=== PATIENT | male | born 1960 | race African-American/Black ===

== ENCOUNTER 2021-12-23 10:54 | Inpatient (IN) | payer MEDICARE, OTHER ==
[2021-12-23 12:45] VITALS: BMI 24.1
[2021-12-23] MEDS ORDERED: LOPERAMIDE HCL 2 MG CAPSULE PO PRN (16:44)
[2021-12-23] MEDS ORDERED: MAGNESIUM CITRATE 300 ML BOTTLE PO PRN (16:44)
[2021-12-23] MEDS ORDERED: MAG HYDROX/AL HYDROX/SIMETH 30 ML UNIT-DOSE CUP PO PRN (16:44)
[2021-12-23] MEDS ORDERED: ONDANSETRON *ODT* 4 MG TABLET SL PRN (16:44)
[2021-12-23] MEDS ORDERED: BISMUTH SUBSALICYLATE 524 MG/30 ML PO PRN (16:44)
[2021-12-23] MEDS ORDERED: chlordiazePOXIDE HCL 25 MG CAPSULE PO PRN (16:44)
[2021-12-23] MEDS ORDERED: DICYCLOMINE HCL 10 MG CAPSULE PO PRN (16:44)
[2021-12-23] MEDS ORDERED: ACETAMINOPHEN 325 MG TABLET (FP) PO PRN ×2 (16:44)
[2021-12-23] MEDS ORDERED: MAGNESIUM HYDROX 2400MG/30ML ORAL SUSPENSION 30 ML CUP PO PRN (16:44)
[2021-12-23] MEDS ORDERED: BENZOCAINE/MENTHOL (CHLORASEPTIC ) LOZENGE MM PRN (16:44)
[2021-12-23] MEDS ORDERED: IBUPROFEN 400 MG TABLET (FP) PO PRN (16:44)
[2021-12-23] MEDS ORDERED: cloNIDine HCL 0.1 MG TABLET PO ONE (16:51)
[2021-12-23] MEDS: hydrOXYzine PAMOATE 25 MG CAPSULE (FP) PO SCH ×2 (18:50→22:16)
[2021-12-23] MEDS: THIAMINE HCL 100 MG TABLET (FP) PO SCH (22:16)
[2021-12-23] MEDS: chlordiazePOXIDE HCL 25 MG CAPSULE PO SCH (22:16)
[2021-12-23] MEDS: MELATONIN 5 MG TABLETS PO SCH (22:19)
[2021-12-24] MEDS: chlordiazePOXIDE HCL 25 MG CAPSULE PO SCH ×4 (05:10→22:16)
[2021-12-24] MEDS: hydrOXYzine PAMOATE 25 MG CAPSULE (FP) PO SCH ×5 (05:11→22:19)
[2021-12-24] MEDS: PRENATAL VITAMINS W/ FOLIC ACID TABLET (FP) PO SCH (10:18)
[2021-12-24 14:14] LABS: HEMATOCRIT 42.5 % (35.4-49); HEMOGLOBIN 14.3 GM/dL (11.7-16.9); MCH 30.4 pg (25.7-33.7); MCHC 33.7 g/dl (32.0-35.9); MEAN PLT VOLUME 8.2 fl (7.5-11.1); PLATELET COUNT 208 10^3/uL (134-434); RBC 4.72 M/mm3 (4.00-5.60); RDW 13.4 % (11.9-15.9); WHITE BLOOD COUNT 6.1 K/mm3 (4.0-10.0)
[2021-12-24 14:20] LABS: ALBUMIN 3.3 g/dl (3.4-5.0); BLOOD UREA NITROGEN 12.7 mg/dL (7-18); CALCIUM 9.3 mg/dL (8.5-10.1)
[2021-12-24 14:24] LABS: CREATININE 0.8 mg/dL (0.55-1.3)
[2021-12-24 14:26] LABS: BILIRUBIN,TOTAL 0.5 mg/dL (0.2-1); TOT PROT 6.3 g/dl (6.4-8.2)
[2021-12-24] MEDS ORDERED: POTASSIUM CHLORIDE ORAL LIQUID 20 MEQ/15 ML PO ONE (15:15)
[2021-12-24] MEDS: POTASSIUM CHLORIDE ORAL LIQUID 20 MEQ/15 ML PO SCH (22:16)
[2021-12-24] MEDS: THIAMINE HCL 100 MG TABLET (FP) PO SCH (22:16)
[2021-12-24] MEDS: MELATONIN 5 MG TABLETS PO SCH (22:19)
[2021-12-25] MEDS: chlordiazePOXIDE HCL 25 MG CAPSULE PO SCH ×4 (06:25→23:11)
[2021-12-25] MEDS: hydrOXYzine PAMOATE 25 MG CAPSULE (FP) PO SCH ×5 (06:25→23:46)
[2021-12-25] MEDS: PRENATAL VITAMINS W/ FOLIC ACID TABLET (FP) PO SCH (10:22)
[2021-12-25] MEDS: POTASSIUM CHLORIDE ORAL LIQUID 20 MEQ/15 ML PO SCH ×2 (10:22→23:10)
[2021-12-25] MEDS ORDERED: cloNIDine HCL 0.1 MG TABLET PO ONE (11:45)
[2021-12-25] MEDS ORDERED: PENICILLIN G BENZATHINE 2,400,000 UNIT/4 ML PFS IM ONE (11:45)
[2021-12-25] MEDS: IBUPROFEN 600 MG TABLET (FP) PO PRN ×2 (15:05→21:28)
[2021-12-25] MEDS: METHOCARBAMOL 500 MG TABLET PO PRN ×2 (15:05→21:28)
[2021-12-25] MEDS: amLODIPine BESYLATE 10 MG TABLET (FP) PO SCH (17:59)
[2021-12-25] MEDS: LISINOPRIL 10 MG TABLET PO SCH (17:59)
[2021-12-25] MEDS: THIAMINE HCL 100 MG TABLET (FP) PO SCH (23:11)
[2021-12-25] MEDS: MELATONIN 5 MG TABLETS PO SCH (23:12)
[2021-12-25] MEDS: LIDOCAINE PATCH REMOVAL MC SCH (23:13)
[2021-12-26] MEDS ORDERED: chlordiazePOXIDE HCL 10 MG CAPSULE PO PRN
[2021-12-26] MEDS: chlordiazePOXIDE HCL 10 MG CAPSULE PO SCH ×4 (05:24→22:37)
[2021-12-26] MEDS: hydrOXYzine PAMOATE 25 MG CAPSULE (FP) PO SCH ×5 (05:24→22:37)
[2021-12-26] MEDS: PRENATAL VITAMINS W/ FOLIC ACID TABLET (FP) PO SCH (10:42)
[2021-12-26] MEDS: amLODIPine BESYLATE 10 MG TABLET (FP) PO SCH (10:43)
[2021-12-26] MEDS: METHOCARBAMOL 500 MG TABLET PO PRN (10:43)
[2021-12-26] MEDS: LIDOCAINE 5% TOPICAL PATCH TP SCH (10:43)
[2021-12-26] MEDS: LISINOPRIL 10 MG TABLET PO SCH (10:43)
[2021-12-26] MEDS ORDERED: cloNIDine HCL 0.1 MG TABLET PO ONE (20:50)
[2021-12-26] MEDS: THIAMINE HCL 100 MG TABLET (FP) PO SCH (22:37)
[2021-12-26] MEDS: MELATONIN 5 MG TABLETS PO SCH (22:38)
[2021-12-26] MEDS: LIDOCAINE PATCH REMOVAL MC SCH (22:39)
[2021-12-27] MEDS: hydrOXYzine PAMOATE 25 MG CAPSULE (FP) PO SCH ×5 (05:26→22:25)
[2021-12-27] MEDS: chlordiazePOXIDE HCL 10 MG CAPSULE PO SCH ×2 (05:26→18:27)
[2021-12-27] MEDS: LIDOCAINE 5% TOPICAL PATCH TP SCH (10:33)
[2021-12-27] MEDS: PRENATAL VITAMINS W/ FOLIC ACID TABLET (FP) PO SCH (10:34)
[2021-12-27] MEDS: METHOCARBAMOL 500 MG TABLET PO PRN (10:34)
[2021-12-27] MEDS: amLODIPine BESYLATE 10 MG TABLET (FP) PO SCH (10:34)
[2021-12-27] MEDS: LISINOPRIL 10 MG TABLET PO SCH (10:34)
[2021-12-27] MEDS: THIAMINE HCL 100 MG TABLET (FP) PO SCH (22:23)
[2021-12-27] MEDS: LIDOCAINE PATCH REMOVAL MC SCH (22:24)
[2021-12-27] MEDS: MELATONIN 5 MG TABLETS PO SCH (22:24)
[2021-12-28] MEDS ORDERED: chlordiazePOXIDE HCL 10 MG CAPSULE PO ONE (05:00)
[2021-12-28] MEDS: hydrOXYzine PAMOATE 25 MG CAPSULE (FP) PO SCH ×2 (05:20→10:09)
[2021-12-28 09:03] VITALS: RESP 18
[2021-12-28] MEDS: PRENATAL VITAMINS W/ FOLIC ACID TABLET (FP) PO SCH (10:09)
[2021-12-28] MEDS: amLODIPine BESYLATE 10 MG TABLET (FP) PO SCH (10:09)
[2021-12-28] MEDS: LISINOPRIL 10 MG TABLET PO SCH (10:09)
[2021-12-28] MEDS: LIDOCAINE 5% TOPICAL PATCH TP SCH (11:05)
[2021-12-28] MEDS ORDERED: LIDOCAINE 5% TOPICAL PATCH TP SCH (12:45)
[2021-12-28 12:46] VITALS: BP 171/95; PULSE 75; TEMP 97.1
[2021-12-28] MEDS ORDERED: LIDOCAINE PATCH REMOVAL MC SCH (22:00)
== END 2021-12-28 14:50 | disposition other institution (70) | DRG 897 ==
LOC: YASAS 10:54 → SUATTDRO 10:54 → Y6N 17:48
PROVIDERS: ADMIT Allergy & Immunology; ATTEND Surgery
PROC: HZ2ZZZZ Detoxification Services for Substance Abuse Treatment (ICD-10-PCS; principal; 2021-12-23)
DX: F10.230 Alcohol dependence with withdrawal, uncomplicated (principal); F17.210 Nicotine dependence, cigarettes, uncomplicated; I10 Essential (primary) hypertension; Z86.19 Personal history of other infectious and parasitic diseases; Z87.820 Personal history of traumatic brain injury
CPT/HCPCS: 36415; 80053; 84132; 85027; 86593; 86780; 87811; C9803-CS; U0003; U0005

== ENCOUNTER 2021-12-28 14:55 | Inpatient (IN) | payer MEDICARE, OTHER ==
[2021-12-28] MEDS ORDERED: MAGNESIUM HYDROX 2400MG/30ML ORAL SUSPENSION 30 ML CUP PO PRN (15:37)
[2021-12-28] MEDS ORDERED: MAGNESIUM CITRATE 300 ML BOTTLE PO PRN (15:37)
[2021-12-28] MEDS ORDERED: MAG HYDROX/AL HYDROX/SIMETH 30 ML UNIT-DOSE CUP PO PRN (15:37)
[2021-12-28] MEDS ORDERED: ACETAMINOPHEN 325 MG TABLET (FP) PO PRN (15:37)
[2021-12-28] MEDS ORDERED: guaiFENesin 200 MG/10 ML 10 ML UNIT-DOSE CUPS PO PRN (15:37)
[2021-12-28] MEDS ORDERED: NICOTINE POLACRILEX 2 MG GUM BUC PRN (15:37)
[2021-12-28] MEDS ORDERED: LOPERAMIDE HCL 2 MG CAPSULE PO PRN (15:37)
[2021-12-28] MEDS ORDERED: P-EPHED 60MG/TRIPROLIDI 2.5MG TABLET PO PRN (15:37)
[2021-12-28] MEDS ORDERED: IBUPROFEN 400 MG TABLET (FP) PO PRN (15:37)
[2021-12-28] MEDS ORDERED: NICOTINE 7 MG/24 HOURS TOPICAL PATCH TD PRN (16:00)
[2021-12-28] MEDS: THIAMINE HCL 100 MG TABLET (FP) PO SCH (21:43)
[2021-12-28] MEDS: MELATONIN 5 MG TABLETS PO SCH (21:43)
[2021-12-28] MEDS: hydrOXYzine PAMOATE 25 MG CAPSULE (FP) PO PRN (21:43)
[2021-12-29] MEDS: amLODIPine BESYLATE 10 MG TABLET (FP) PO SCH (09:37)
[2021-12-29] MEDS: LISINOPRIL 10 MG TABLET PO SCH (09:37)
[2021-12-29] MEDS: PRENATAL VITAMINS W/ FOLIC ACID TABLET (FP) PO SCH (09:37)
[2021-12-29] MEDS: THIAMINE HCL 100 MG TABLET (FP) PO SCH (21:08)
[2021-12-29] MEDS: MELATONIN 5 MG TABLETS PO SCH (21:08)
[2021-12-30] MEDS: LISINOPRIL 10 MG TABLET PO SCH (09:46)
[2021-12-30] MEDS: PRENATAL VITAMINS W/ FOLIC ACID TABLET (FP) PO SCH (09:46)
[2021-12-30] MEDS: amLODIPine BESYLATE 10 MG TABLET (FP) PO SCH (09:46)
[2021-12-30] MEDS: MELATONIN 5 MG TABLETS PO SCH (21:19)
[2021-12-30] MEDS: THIAMINE HCL 100 MG TABLET (FP) PO SCH (21:19)
[2021-12-31] MEDS: amLODIPine BESYLATE 10 MG TABLET (FP) PO SCH (09:41)
[2021-12-31] MEDS: LISINOPRIL 10 MG TABLET PO SCH (09:41)
[2021-12-31] MEDS: PRENATAL VITAMINS W/ FOLIC ACID TABLET (FP) PO SCH (09:42)
[2021-12-31] MEDS: hydrOXYzine PAMOATE 25 MG CAPSULE (FP) PO PRN (21:15)
[2021-12-31] MEDS: MELATONIN 5 MG TABLETS PO SCH (21:15)
[2021-12-31] MEDS: THIAMINE HCL 100 MG TABLET (FP) PO SCH (21:15)
[2022-01-01] MEDS: BENZOCAINE/MENTHOL (CHLORASEPTIC ) LOZENGE MM PRN (08:41)
[2022-01-01] MEDS: amLODIPine BESYLATE 10 MG TABLET (FP) PO SCH (09:53)
[2022-01-01] MEDS: LISINOPRIL 10 MG TABLET PO SCH (09:53)
[2022-01-01] MEDS: PRENATAL VITAMINS W/ FOLIC ACID TABLET (FP) PO SCH (09:53)
[2022-01-01] MEDS ORDERED: PENICILLIN G BENZATHINE 2,400,000 UNIT/4 ML PFS IM ONE (10:00)
[2022-01-01] MEDS: MELATONIN 5 MG TABLETS PO SCH (21:45)
[2022-01-01] MEDS: THIAMINE HCL 100 MG TABLET (FP) PO SCH (21:45)
[2022-01-02] MEDS: PRENATAL VITAMINS W/ FOLIC ACID TABLET (FP) PO SCH (09:03)
[2022-01-02] MEDS: amLODIPine BESYLATE 10 MG TABLET (FP) PO SCH (09:03)
[2022-01-02] MEDS: LISINOPRIL 10 MG TABLET PO SCH (09:03)
[2022-01-02] MEDS: MELATONIN 5 MG TABLETS PO SCH (21:33)
[2022-01-02] MEDS: THIAMINE HCL 100 MG TABLET (FP) PO SCH (21:33)
[2022-01-03] MEDS: LISINOPRIL 10 MG TABLET PO SCH (09:41)
[2022-01-03] MEDS: PRENATAL VITAMINS W/ FOLIC ACID TABLET (FP) PO SCH (09:41)
[2022-01-03] MEDS: amLODIPine BESYLATE 10 MG TABLET (FP) PO SCH (09:41)
[2022-01-03] MEDS: BENZOCAINE/MENTHOL (CHLORASEPTIC ) LOZENGE MM PRN ×2 (09:42→21:18)
[2022-01-03] MEDS: THIAMINE HCL 100 MG TABLET (FP) PO SCH (21:16)
[2022-01-03] MEDS: MELATONIN 5 MG TABLETS PO SCH (21:16)
[2022-01-04] MEDS: BENZOCAINE/MENTHOL (CHLORASEPTIC ) LOZENGE MM PRN ×2 (07:04→21:30)
[2022-01-04] MEDS: PRENATAL VITAMINS W/ FOLIC ACID TABLET (FP) PO SCH (09:52)
[2022-01-04] MEDS: LISINOPRIL 10 MG TABLET PO SCH (09:52)
[2022-01-04] MEDS: amLODIPine BESYLATE 10 MG TABLET (FP) PO SCH (09:52)
[2022-01-04] MEDS: THIAMINE HCL 100 MG TABLET (FP) PO SCH (21:29)
[2022-01-04] MEDS: MELATONIN 5 MG TABLETS PO SCH (21:29)
[2022-01-05] MEDS: LISINOPRIL 10 MG TABLET PO SCH (09:37)
[2022-01-05] MEDS: amLODIPine BESYLATE 10 MG TABLET (FP) PO SCH (09:37)
[2022-01-05] MEDS: PRENATAL VITAMINS W/ FOLIC ACID TABLET (FP) PO SCH (09:38)
[2022-01-05] MEDS: BENZOCAINE/MENTHOL (CHLORASEPTIC ) LOZENGE MM PRN ×2 (09:39→21:35)
[2022-01-05] MEDS: MELATONIN 5 MG TABLETS PO SCH (21:34)
[2022-01-05] MEDS: THIAMINE HCL 100 MG TABLET (FP) PO SCH (21:34)
[2022-01-06] MEDS: LISINOPRIL 10 MG TABLET PO SCH (09:40)
[2022-01-06] MEDS: amLODIPine BESYLATE 10 MG TABLET (FP) PO SCH (09:40)
[2022-01-06] MEDS: PRENATAL VITAMINS W/ FOLIC ACID TABLET (FP) PO SCH (09:40)
[2022-01-06] MEDS: BENZOCAINE/MENTHOL (CHLORASEPTIC ) LOZENGE MM PRN ×2 (09:41→21:50)
[2022-01-06] MEDS: MELATONIN 5 MG TABLETS PO SCH (21:48)
[2022-01-06] MEDS: THIAMINE HCL 100 MG TABLET (FP) PO SCH (21:48)
[2022-01-07] MEDS: amLODIPine BESYLATE 10 MG TABLET (FP) PO SCH (09:38)
[2022-01-07] MEDS: LISINOPRIL 10 MG TABLET PO SCH (09:38)
[2022-01-07] MEDS: PRENATAL VITAMINS W/ FOLIC ACID TABLET (FP) PO SCH (09:38)
[2022-01-07] MEDS: BENZOCAINE/MENTHOL (CHLORASEPTIC ) LOZENGE MM PRN ×2 (09:39→21:12)
[2022-01-07] MEDS: THIAMINE HCL 100 MG TABLET (FP) PO SCH (21:11)
[2022-01-07] MEDS: MELATONIN 5 MG TABLETS PO SCH (21:11)
[2022-01-08] MEDS: LISINOPRIL 10 MG TABLET PO SCH (09:46)
[2022-01-08] MEDS: amLODIPine BESYLATE 10 MG TABLET (FP) PO SCH (09:46)
[2022-01-08] MEDS: PRENATAL VITAMINS W/ FOLIC ACID TABLET (FP) PO SCH (09:46)
[2022-01-08] MEDS: BENZOCAINE/MENTHOL (CHLORASEPTIC ) LOZENGE MM PRN (09:47)
[2022-01-08] MEDS ORDERED: PENICILLIN G BENZATHINE 2,400,000 UNIT/4 ML PFS IM ONE (10:00)
[2022-01-08] MEDS: THIAMINE HCL 100 MG TABLET (FP) PO SCH (21:23)
[2022-01-08] MEDS: MELATONIN 5 MG TABLETS PO SCH (21:23)
[2022-01-09] MEDS: amLODIPine BESYLATE 10 MG TABLET (FP) PO SCH (10:14)
[2022-01-09] MEDS: LISINOPRIL 10 MG TABLET PO SCH (10:14)
[2022-01-09] MEDS: PRENATAL VITAMINS W/ FOLIC ACID TABLET (FP) PO SCH (10:14)
[2022-01-09] MEDS: MELATONIN 5 MG TABLETS PO SCH (21:23)
[2022-01-09] MEDS: THIAMINE HCL 100 MG TABLET (FP) PO SCH (21:23)
[2022-01-10] MEDS: LISINOPRIL 10 MG TABLET PO SCH (09:35)
[2022-01-10] MEDS: PRENATAL VITAMINS W/ FOLIC ACID TABLET (FP) PO SCH (09:35)
[2022-01-10] MEDS: amLODIPine BESYLATE 10 MG TABLET (FP) PO SCH (09:35)
[2022-01-10] MEDS: BENZOCAINE/MENTHOL (CHLORASEPTIC ) LOZENGE MM PRN (09:36)
[2022-01-10] MEDS: MELATONIN 5 MG TABLETS PO SCH (21:20)
[2022-01-10] MEDS: THIAMINE HCL 100 MG TABLET (FP) PO SCH (21:20)
[2022-01-11 07:00] VITALS: TEMP 97.3
[2022-01-11] MEDS: PRENATAL VITAMINS W/ FOLIC ACID TABLET (FP) PO SCH (09:07)
[2022-01-11] MEDS: LISINOPRIL 10 MG TABLET PO SCH (09:07)
[2022-01-11] MEDS: amLODIPine BESYLATE 10 MG TABLET (FP) PO SCH (09:07)
[2022-01-11] MEDS: BENZOCAINE/MENTHOL (CHLORASEPTIC ) LOZENGE MM PRN (09:09)
[2022-01-11 10:41] VITALS: BP 118/80; PULSE 69; RESP 17
== END 2022-01-11 09:20 | disposition home or self-care (01) | DRG 895 ==
LOC: YASAS 14:55 → Y3E 14:56
PROVIDERS: ADMIT Allergy & Immunology; ATTEND Psychiatry & Neurology Pain Medicine
PROC: HZ42ZZZ Group Counseling for Substance Abuse Treatment, Cognitive-Behavioral (ICD-10-PCS; principal; 2021-12-28)
DX: F10.20 Alcohol dependence, uncomplicated (principal); F17.210 Nicotine dependence, cigarettes, uncomplicated; I10 Essential (primary) hypertension